=== PATIENT | male | born 1990 | race Caucasian/White ===

== ENCOUNTER 2018-01-05 14:30 | Emergency (ER) | payer OTHER ==
[2018-01-05 16:14] VITALS: BP 97/60
[2018-01-05] MEDS ORDERED: Sulfamethox/Trimethoprim DS 800/160* TAB PO ONE (17:53)
--- NOTE | 2018-01-05 17:56 | ED ---
Lower Extremity - HPI Summary HPI Summary: Patient here for chronic wound on the lateral left heel x weeks. Seen here before for same, given Rx for Bactrim and told to follow up with wound care. Patient states he has been compliant with antibiotics, and has an appointment with wound care and 01/07/18. Patient states he has not been dressing wound. Denies purulent discharge. Also states wound appears to be slowly improving. Medical history is none. Denies fever, cough, sore throat, CP, SOB, N/V/D, abdominal pain, change in urine, change in BM. - History of Current Complaint Chief Complaint: EDExtremityLower Stated Complaint: LEFT FOOT PAIN Time Seen by Provider: 01/05/18 17:12 Hx Obtained From: Patient Mechanism Of Injury: Other Onset/Duration: Weeks Severity Currently: None Pain Intensity: 0 Pain Scale Used: 0-10 Numeric Associated Signs And Symptoms: Positive: Negative Aggravating Factor(s): Weight Bearing Alleviating Factor(s): Rest Able to Bear Weight: Yes - Allergies/Home Medications Allergies/Adverse Reactions: Allergies Allergy/AdvReac Type Severity Reaction Status Date / Time No Known Allergies Allergy Verified 12/23/17 15:39 PMH/Surg Hx/FS Hx/Imm Hx Endocrine/Hematology History: Reports: Hx Thyroid Disease - thyroidectomy 2013 - takes levothyroxine - no chemo Denies: Hx Diabetes, Hx Systemic Lupus Erythematosus Cardiovascular History: Denies: Hx Congestive Heart Failure, Hx Hypertension Respiratory History: Reports: Hx Asthma GI History: Reports: Other GI Disorders - luq pain 1 week History: Denies: Hx Dialysis, Hx Renal Disease Musculoskeletal History: Denies: Hx Rheumatoid Arthritis Sensory History: Reports: Hx Contacts or Glasses Opthamlomology History: Reports: Hx Contacts or Glasses Psychiatric History: Reports: Hx Schizophrenia - best med for him he reports is resperidal, Hx of Violent Episodes Against Others Denies: Hx Eating Disorder - Cancer History Cancer Type, Location and Year: Thyroid CA Hx Chemotherapy: No - Surgical History Surgery Procedure, Year, and Place: TONSILECTOMY., tubes ears as a child Infectious Disease History: No Infectious Disease History: Denies: Traveled Outside the [place] in Last 30 Days - Family History Known Family History: Positive: Unknown, Other - Depression: Mother - Social History Alcohol Use: None Alcohol Amount: Pt is not known to be a drinker Substance Use Type: Reports: Cocaine, Heroin, Other Substance Use Comment - Amount & Last Used: Pt again stated "all the time...forever" Hx Tobacco Use: Yes Smoking Status (MU): Current Some Day Smoker Have You Smoked in the Last Year: No Review of Systems Constitutional: Negative Eyes: Negative ENT: Negative Cardiovascular: Negative Respiratory: Negative Gastrointestinal: Negative Genitourinary: Negative Musculoskeletal: Negative Skin: Other Neurological: Negative Psychological: Normal All Other Systems Reviewed And Are Negative: Yes Physical Exam - Summary Physical Exam Summary: ulceration wound of left lateral heel. No purulent discharge, no erythema, ecchymosis, swelling, extra warmth. Mildly tender to palpation. Skin around areas heavily calloused. PMS intact on left foot. Triage Information Reviewed: Yes Vital Signs On Initial Exam: Initial Vitals Temp Pulse Resp BP Pulse Ox 97.6 F 85 16 115/69 98 01/05/18 14:32 01/05/18 14:32 01/05/18 14:32 01/05/18 14:32 01/05/18 14:32 Vital Signs Reviewed: Yes Appearance: Positive: Well-Appearing Skin: Positive: Warm Head/Face: Positive: Normal Head/Face Inspection Eyes: Positive: Normal Neck: Positive: Supple Respiratory/Lung Sounds: Positive: Clear to Auscultation Cardiovascular: Positive: Normal Abdomen Description: Positive: Nontender Musculoskeletal: Positive: Normal Neurological: Positive: Normal Psychiatric: Positive: Normal AVPU Assessment: Alert - [place] Coma Scale Best Eye Response: 4 - Spontaneous Best Motor Response: 6 - Obeys Commands Best Verbal Response: 5 - Oriented Coma Scale Total: 15 Diagnostics - Vital Signs Vital Signs Temp Pulse Resp BP Pulse Ox 01/05/18 16:12 98.7 F 93 18 97/60 98 01/05/18 14:32 97.6 F 85 16 115/69 98 - Laboratory Lab Statement: Any lab studies that have been ordered have been reviewed, and results considered in the medical decision making process. Lower Extremity Course/Dx - Course Course Of Treatment: Patient here for chronic wound on the lateral left heel x weeks. Seen here before for same, given Rx for Bactrim and told to follow up with wound care. Patient states he has been compliant with antibiotics, and has an appointment with wound care and 01/07/18. Patient states he has not been dressing wound. Denies purulent discharge. Also states wound appears to be slowly improving. Medical history is none. Denies fever, cough, sore throat , CP, SOB, N/V/D, abdominal pain, change in urine, change in BM. Physical exam :ulceration wound of left lateral heel. No purulent discharge, no erythema, ecchymosis, swelling, extra warmth. Mildly tender to palpation. Skin around areas heavily calloused. PMS intact on left foot. Vital signs within normal limits. Wound clean and dry. Patient has appointment on the for with wound care. Patient states he has completed prior Rx for Bactrim. States wound is improving slowly. We'll provide Rx for second round of Bactrim and have patient follow up with wound care at already scheduled appointment on . - Diagnoses Provider Diagnoses: Encounter for wound re-check Discharge - Sign-Out/Discharge Documenting (check all that apply): Patient Departure - Discharge Plan Condition: Stable Disposition: ELOPEMENT Prescriptions: Sulfamethox/Trimethoprim DS* [Bactrim DS 800/160 TAB*] 1 tab PO BID 10 Days #20 tab Patient Education Materials: Wound Infection (ED), Acute Wound Care (ED), Chronic Wound Care (ED) Referrals: Zofia Juan MD [Primary Care Provider] - Additional Instructions: Take antibiotics as directed. Follow-up with already scheduled appointment with wound care on January 07. Return to the ED for any new or worsening symptoms - Billing Disposition and Condition Condition: STABLE Disposition: Elopement
== END 2018-01-05 18:03 | disposition left against medical advice (07) ==
LOC: ED 14:30
DX: S90.922A Unspecified superficial injury of left foot, initial encounter (principal); X58.XXXA Exposure to other specified factors, initial encounter; Y92.9 Unspecified place or not applicable; E07.9 Disorder of thyroid, unspecified; Z72.0 Tobacco use
CPT/HCPCS: 99281

== ENCOUNTER 2018-02-25 00:58 | Inpatient (IN) | payer OTHER ==
--- NOTE | 2018-02-25 01:25 | ED ---
Psychiatric Complaint - HPI Summary HPI Summary: A 27 y/o male brought in by [email or web address] ambulance presents to [facility] with a chief complaint of hearing voices for the last couple weeks REMITTANCE CLERK on the morning of . He called the ambulance himself. He reports being homeless and not living in a [facility]. He c/o schizophrenic attacks. He used to be medicated, but lost his medication and so he came to the ED to seek medical treatment. He claims that the voices do not tell him to hurt anyone but that his voices are sometimes mean. He denies any SI/HI. - History Of Current Complaint Chief Complaint: EDMentalHealth Time Seen by Provider: 02/25/18 01:01 Hx Obtained From: Patient, EMS Onset/Duration: Sudden Onset, Lasting Weeks, Still Present Timing: Constant Severity Initially: Mild Severity Currently: Mild Aggravating Factor(s): Nothing Alleviating Factor(s): Nothing Associated Signs And Symptoms: Positive: Hallucinating Related History: Positive For: Prior Psychiatric Issues Has Suicidal: Denies: Thoughts Has Homicidal: Denies: Thoughts - Allergies/Home Medications Allergies/Adverse Reactions: Allergies Allergy/AdvReac Type Severity Reaction Status Date / Time No Known Allergies Allergy Verified 12/23/17 15:39 Home Medications: Home Medications NK [No Home Medications Reported] 02/25/18 [History Confirmed 02/25/18] PMH/Surg Hx/FS Hx/Imm Hx Endocrine/Hematology History: Reports: Hx Thyroid Disease - thyroidectomy 2013 - takes levothyroxine - no chemo Denies: Hx Diabetes, Hx Systemic Lupus Erythematosus Cardiovascular History: Denies: Hx Congestive Heart Failure, Hx Hypertension Respiratory History: Reports: Hx Asthma GI History: Reports: Other GI Disorders - luq pain 1 week History: Denies: Hx Dialysis, Hx Renal Disease Musculoskeletal History: Denies: Hx Rheumatoid Arthritis Sensory History: Reports: Hx Contacts or Glasses Opthamlomology History: Reports: Hx Contacts or Glasses Psychiatric History: Reports: Hx Schizophrenia - best med for him he reports is resperidal, Hx of Violent Episodes Against Others Denies: Hx Eating Disorder - Cancer History Cancer Type, Location and Year: Thyroid CA Hx Chemotherapy: No - Surgical History Surgery Procedure, Year, and Place: TONSILECTOMY., tubes ears as a child Infectious Disease History: No Infectious Disease History: Denies: Traveled Outside the [place] in Last 30 Days - Family History Known Family History: Positive: Other - Depression: Mother - Social History Alcohol Use: None Alcohol Amount: Pt is not known to be a drinker Substance Use Type: Reports: Cocaine, Heroin, Other Substance Use Comment - Amount & Last Used: Pt again stated "all the time...forever" Hx Tobacco Use: Yes Smoking Status (MU): Current Some Day Smoker Have You Smoked in the Last Year: No Review of Systems Negative: Fever Psychological: Other - Negative: HI/SI Positive: Other - Positive: hearing voices All Other Systems Reviewed And Are Negative: Yes Physical Exam - Summary Physical Exam Summary: VITAL SIGNS: Reviewed. GENERAL: Patient is a well-developed and nourished MALE who is lying comfortable in the stretcher. Patient is not in any acute respiratory distress. HEAD AND FACE: No signs of trauma. No ecchymosis, hematomas or skull depressions. No sinus tenderness. EYES: PERRLA, EOMI x 2, No injected conjunctiva, no nystagmus. EARS: Hearing grossly intact. Ear canals and tympanic membranes are within normal limits. MOUTH: Oropharynx within normal limits. NECK: Supple, trachea is midline, no adenopathy, no JVD, no carotid bruit, no c- spine tenderness, neck with full ROM. CHEST: Symmetric, no tenderness at palpation LUNGS: Clear to auscultation bilaterally. No wheezing or crackles. CVS: Regular rate and rhythm, S1 and S2 present, no murmurs or gallops appreciated. ABDOMEN: Soft, non-tender. No signs of distention. No rebound no guarding, and no masses palpated. Bowel sounds are normal. EXTREMITIES: FROM in all major joints, no edema, no cyanosis or clubbing. NEURO: Alert and oriented x 3. No acute neurological deficits. Speech is normal and follows commands. SKIN: Dry and warm Psych: Hearing voices, homeless, denies suicidal/homicidal thoughts Triage Information Reviewed: Yes Vital Signs On Initial Exam: Initial Vitals Temp Pulse Resp BP Pulse Ox 98.1 F 74 16 118/75 98 02/25/18 00:59 02/25/18 00:59 02/25/18 00:59 02/25/18 00:59 02/25/18 00:59 Vital Signs Reviewed: Yes Diagnostics - Vital Signs Vital Signs Temp Pulse Resp BP Pulse Ox 02/25/18 00:59 98.1 F 74 16 118/75 98 - Laboratory Result Diagrams: 02/25/18 01:28 02/25/18 01:28 Lab Statement: Any lab studies that have been ordered have been reviewed, and results considered in the medical decision making process. Re-Evaluation - Re-Evaluation First Eval Re-Evaluation Time: 03:18 Change: Unchanged Comment: Cleared for MHE. Course/Dx - Course Course Of Treatment: A 27 y/o male brought in by [facility] ambulance presents to [facility] with a chief complaint of hearing voices for the last couple weeks REMITTANCE CLERK on the morning of 02/25/18. Lab results obtained. TSH high at 252.64. The patient has been cleared for MHE. Per clip riveter, Dr. Zhang has decided that the patient will be admitted. The patient is agreeable with this plan. - Differential Dx/Clinical Impression Provider Diagnosis: Schizophrenia, Psychosis, Hypothyroidism - Physician Notifications Discussed Care Of Patient With: Bethel Zhang Time Discussed With Above Provider: 05:20 Instructed by Provider To: Other - Per clip riveter, Dr. Zhang has decided that the patient will be admitted. Discharge - Sign-Out/Discharge Documenting (check all that apply): Patient Departure - Admit - Discharge Plan Condition: Fair Disposition: [facility]YCHIATRIC FACILITY-[facility] [place] - Billing Disposition and Condition Condition: FAIR Disposition: Psychiatric Facility [facility] [place] - Attestation Statements Document Initiated by Fifi: Yes Documenting Scribe: Iban Petersen Provider For Whom Fifi is Documenting (Include Credential): Francheska Benoit MD Scribe Attestation: IIban, scribed for Francheska Benoit MD on 02/25/18 at 0633. Scribe Documentation Reviewed: Yes Provider Attestation: The documentation as recorded by the Iban taylor accurately reflects the service I personally performed and the decisions made by me, Francheska Benoit MD Status of Scribe Document: Viewed
[2018-02-25 01:33] LABS: ABS Basophils 0.1 10^3/ul (0-0.2); ABS Eosinophils 0.2 10^3/ul (0-0.6); ABS Lymphocytes 2.1 10^3/ul (1.0-4.8); ABS Monocytes 0.4 10^3/ul (0-0.8); ABS Nucleated RBC 0 10^3/ul; Eosinophil % 3.1 %; Hematocrit 44 % (42-52); Hemoglobin 15.1 g/dl (14.0-18.0); Lymphocyte % 31.1 %; Mean Corpuscular HGB Conc 34 g/dl (31-36); Mean Corpuscular Hemoglobin 31 pg (27-31); Mean Corpuscular Volume 90 fL (80-94); Mean Platelet Volume 8.4 fL (7.4-10.4); Nucleated Red Blood Cells % 0; Platelet Count 205 10^3/ul (150-450); Red Blood Count 4.92 10^6/ul (4.00-5.40); Red Cell Distribution Width 15 % (10.5-15); White Blood Count 6.7 10^3/ul (3.5-10.8)
[2018-02-25 01:50] LABS: ALT 15 U/L (7-52); AST 37 U/L (13-39); Albumin 4.2 g/dL (3.2-5.2); Albumin/Globulin Ratio 1.3 (1-3); Alkaline Phosphatase 62 U/L (34-104); Anion Gap 6 mmol/L (2-11); BUN/Creatinine Ratio 11.1 (8-20); Blood Urea Nitrogen 15 mg/dL (6-24); CO2 Carbon Dioxide 31 mmol/L (22-32); Calcium 9.3 mg/dL (8.6-10.3); Chloride 100 mmol/L (101-111); EGFR African American 76.7 (>60); EGFR Non-African American 63.4 (>60); Globulin 3.3 g/dL (2-4); Glucose 97 mg/dL (70-100); Potassium 4.2 mmol/L (3.5-5.0); Sodium 137 mmol/L (135-145); Total Protein 7.5 g/dL (6.4-8.9)
[2018-02-25 04:02] LABS: Acetaminophen < 15 mcg/mL; Alcohol < 10 mg/dL (<10); Salicylate < 2.50 mg/dL (<30)
[2018-02-25 04:07] LABS: T4, Total 0.78 g/dL (6.09-12.23); TSH (Thyroid Stimulating Horm) 252.64 mcIU/mL (0.34-5.60)
[2018-02-25] MEDS ORDERED: Levothyroxine TAB* 100 MCG TAB PO ONE ×2 (04:50→06:00)
[2018-02-25] MEDS ORDERED: Acetaminophen TAB* 325 MG PO PRN (09:58)
[2018-02-25] MEDS ORDERED: Al Hydrox/Mg Hydrox/Simet LIQ* 30 ML UDC PO PRN (09:58)
[2018-02-25] MEDS: Vitamin THERAPEUTIC TAB PO SCH (11:39)
--- NOTE | 2018-02-25 11:46 | HP ---
H&P (Free Text) History and Physical: CC "I heard voices HPI 27 year old white single male with past history of schizophrenia presented to the Emergency room brought by EMS. He reported that he called them after he was hearing voices telling him that he was not a good person. He reported not taking his medications (risperdal) for the last 2 months. He denied that the voices told him to hurt himself or others. He stated that he was living at [facility] but is now homeless. He denied suicidal and/or homicidal ideation intent or plan. Patient stated "let me sleep please get out " and refused to provide further history. Psychosis He reported hearing things that other people do not hear. He denied seeing things other people do not see. He denied feeling that the TV is making references. He reported that he doesnt like to be around others. Bipolar He denied being irritable most of the time while having an persistent abundance of energy most of the day without the use of substances other than cannabis and what he is prescribed . He denied the decreased need to sleep. Depression He denied feelings of low self worth , feeling empty inside, with feelings of hopelessness .He denied unintentional weight loss and lack of appetite .He denied periods of low levels of energy or difficulty initiating and completing tasks. Anxiety He denied fear of crowds, or phobias. He denied having symptoms of anxiety. He denied worrying most of the day and denied panic attacks. PTSD He denied flashbacks or recurrent nightmares or avoidance. PAST PSYCHIATRIC HISTORY: History of Schizophrenia 1st admission: 1 [place] [facility] [place] History of past suicide/homicide attempts : He denied past suicide attempts He denied past homicidal incidents. Outpatient follow-up: He denied receiving mental health treatment follow up care. Medications: Past trials of medications included Risperdal. He denied past trails of other medications. FAMILY HISTORY: - Suicide: Denied - Mental illness: Denied - Substance abuse: Denied SUBSTANCE ABUSE HISTORY: He denied heroin and cocaine or using other illicit substances. He denied abusing pills not prescribed to him. He denied past substance abuse treatment. He denied using cannabis. He denied alcohol use. He denied nicotine use. SOCIAL HISTORY: He is a single white male who has no children. Denied past work history Currently homeless was previously living at [facility] in [facility]. Denied having any one in his life for support. He has GED and reported being in special education that he refused to talk about. He was raised in [facility]. PAST MEDICAL HISTORY: Denied Allergies: He denied known drug or food allergies Physical Exam: Please see ED note Mental Status Exam Appearance: 27 year old male appears stated age. In bed wearing hospital gown. Malodors and unkept. Psychomotor activity: no psychomotor agitation Eye contact: Fair Posture: Upright Attitude/behavior: uncooperative Speech: normal rate. Mood: "fine " Affect: constricted Thought process: linear and goal directed Thought content: poverty of content Perceptions: He did not appear to be responding to internal stimuli. Reported auditory hallucinations. Suicidal/homicidal targets: Denied suicidal ideation intent or plan. Denied homicidal ideation, intent or plan. Sensorium/orientation: Awake and alert. Oriented to self, location, and time Insight/judgment: Poor insight and judgment. AXIS I: Schizophrenia Plan Justification for Admission: Patient is unable to take care of himself and is unable to appreciate his treatment needs. Involuntary admission. 9.39. The patient requires inpatient admission at this time to assure safety, receive treatment and work toward stabilization. Admit to BSU. Q15 minute observation. Start regular diet. Encourage participation in activities on the milieu. Patient evaluated in ED and is medically stable for admission. VS and Lab results reviewed which showed elevated TSH and decreased T4 and elevated Cr. Medicine consult placed and will follow up on recommendations. Denied access to Firearms Start Risperdal 0.5mg BID . AIMS 0 The risks, benefits, and alternative treatment options were discussed as well as of the risks of refusing treatment. Treatment associated risks discussed . After this discussion and an acknowledgement of his understanding he made the decision for the current type of treatment. Despite treatment associated with enlarged breasts patient choose to proceed with treatment Encouraged shower and hygiene maintenance. Disposition Patient currently homeless.
[2018-02-26] MEDS: Levothyroxine TAB* 100 MCG TAB PO SCH (06:51)
[2018-02-26] MEDS: Vitamin THERAPEUTIC TAB PO SCH (09:46)
[2018-02-26] MEDS ORDERED: Levothyroxine TAB* 100 MCG TAB PO ONE (12:45)
--- NOTE | 2018-02-26 17:16 | PN ---
Subjective - Subjective Date of Service: 02/26/18 Service Type: 30063 Hosp care 15 min low complexity Subjective: 27 year old white single male with past history of schizophrenia presented to the Emergency room brought by EMS. He reported that he called them after he was hearing voices telling him that he was not a good person. He has been off his medications for a couple of months. He was seen and evaluated today in his room and stated that he was doing better. He was seen organizing magazines. He outlined goals such as be closer to family and to make sure that he is well. He then asked advertising copy writer to leave him alone because he did not want to talk. Nursing report indicated that he has been isolating him self from peers and staff. He reported adequate appetite and sleep. Objective - Appearance Appearance: Healthy Appearing Dysmorphic Features: No Hygiene: Normal Grooming: Fairly Well Kept - Behavior Psychomotor Activities: Normal Exhibits Abnormal Movement: No - Attitude and Relatedness Attitude and Relatedness: Minimally Cooperative Eye Contact: Poor - Speech Quality: Unpressured Latencies: Long Quantity: Terse - Mood Patient's Decription of Mood: "Fine" - Affect Observed Affect: Constricted Affect Consistent with: Dysphoria - Thought Process Patient's Thought Process: Impoverished Thought Content: No Passive Wish, No Suicidal Planning, No Homicidal Ideation, No Paranoid Ideation - Sensorium Experiencing Hallucinations: No, Sensorium is Clear Type of Hallucinations: Visual: No, Auditory: No, Command: No - Level of Consciousness Level of Consciousness: Alert Orientation: Yes Intact, Yes Orientated to Time, Yes Orientated to Place, Yes Orientated to Person - Impulse Control Impulse Control: Impaired - Insight and Judgement Insight and Judgement: Impaired - Group Participation Particating in Group Activities: No - Medication Management Medication Management Adherence: Yes Assessment - Assessment Clinical Impression: 27 year old white single male with past history of schizophrenia presented to the Emergency room brought by EMS after not being on his medications for a couple of months. Plan - Plan Treatment Plan: Name: PETER BARBER Birthdate: 1990 [id number] AXIS I: Schizophrenia Plan Justification for Admission: Patient is unable to take care of himself and is unable to appreciate his treatment needs. Involuntary admission. 9.39. The patient requires inpatient admission at this time to assure safety, receive treatment and work toward stabilization. AIMS 0 The risks, benefits, and alternative treatment options were discussed as well as of the risks of refusing treatment. Treatment associated risks discussed . After this discussion and an acknowledgement of his understanding he made the decision for the current type of treatment. Despite treatment associated with enlarged breasts patient choose to proceed with treatment Repeat Cr lab for tomorrow. Increase risperdal 1mg BID. Encouraged shower and hygiene maintenance. Disposition Patient currently homeless. Medications: Current Medications Acetaminophen (Tylenol Tab*) 650 mg PO Q4H PRN PRN Reason: PAIN or TEMP > 101 F Al Hydrox/Mg Hydrox/Simethicone (Maalox Plus*) 30 ml PO Q4H PRN PRN Reason: INDIGESTION Levothyroxine Sodium (Synthroid Tab*) 200 mcg PO DAILY@0600 [facility] Last Admin: 02/26/18 06:51 Dose: 200 mcg Multivitamins (Theragran Tab*) 1 tab PO DAILY [facility] Last Admin: 02/26/18 09:46 Dose: 1 tab Risperidone (Risperdal*) 1 mg PO BID [facility]
[2018-02-26] MEDS: risperiDONE TAB* 1 MG PO SCH (21:22)
[2018-02-27] MEDS: Levothyroxine TAB* 100 MCG TAB PO SCH (12:27)
[2018-02-27] MEDS: risperiDONE TAB* 1 MG PO SCH ×2 (12:28→22:01)
[2018-02-27] MEDS: Vitamin THERAPEUTIC TAB PO SCH (12:28)
[2018-02-28] MEDS: Levothyroxine TAB* 100 MCG TAB PO SCH (06:25)
[2018-02-28 07:41] LABS: BUN/Creatinine Ratio 10.9 (8-20); Calcium 9.7 mg/dL (8.6-10.3); EGFR African American 88.7 (>60); EGFR Non-African American 73.3 (>60); HDL Cholesterol 64.1 mg/dL; Potassium 3.9 mmol/L (3.5-5.0)
[2018-02-28] MEDS: risperiDONE TAB* 1 MG PO SCH ×2 (09:30→21:51)
[2018-02-28] MEDS: Vitamin THERAPEUTIC TAB PO SCH (09:30)
--- NOTE | 2018-02-28 16:51 | PN ---
Progress Note - Progress Note Date of Service: 02/28/18 Note: Candido continues to be seclusive on the unit and spends best part of time in his room. Although denies psychosis he was observed to be responding to unseen stimulies. Observed affect appeared dysphoric.Per nursing Candido has been OK and low profile on the unit. Plan is to continue current treatments.
[2018-03-01] MEDS: Levothyroxine TAB* 100 MCG TAB PO SCH (06:20)
[2018-03-01] MEDS: risperiDONE TAB* 1 MG PO SCH ×2 (09:30→22:32)
[2018-03-01] MEDS: Vitamin THERAPEUTIC TAB PO SCH (09:30)
--- NOTE | 2018-03-01 11:01 | PN ---
Subjective - Subjective Date of Service: 03/01/18 Service Type: 59602 Hosp care 25 min moderate complexity Subjective: Nursing report : Remains to self, doesnt attend group. No PRNs or overnight incidents, slept overnight. Candido was seen and evaluated today in the hallway and stated that he was doing better. He has been complainant with medication. He reported eating and sleeping adequately. He reported that he may be able to return to live with his grandmother but did not have her number. He said she lives in [facility]. He reported he would sign a release form to speak to his brother Pola to obtain collateral information. He said he thinks he is ready to go and plans to take his medications daily. He felt safe and denied auditory and or visual hallucinations. He denied suicidal ideation intent or plan. Objective - Appearance Appearance: Healthy Appearing Dysmorphic Features: No Hygiene: Normal Grooming: Fairly Well Kept - Behavior Psychomotor Activities: Normal Exhibits Abnormal Movement: No - Attitude and Relatedness Attitude and Relatedness: Superficially Cooperative Eye Contact: Fair - Speech Latencies: Normal - Mood Patient's Decription of Mood: "Okay" - Affect Observed Affect: Non-labile Affect Consistent with: Euthymia - Thought Process Patient's Thought Process: Coherent Thought Content: No Passive Wish, No Suicidal Planning, No Homicidal Ideation, No Paranoid Ideation - Sensorium Experiencing Hallucinations: No, Sensorium is Clear Type of Hallucinations: Visual: No, Auditory: No, Command: No - Level of Consciousness Level of Consciousness: Alert Orientation: Yes Intact, Yes Orientated to Time, Yes Orientated to Place, Yes Orientated to Person - Impulse Control Impulse Control: Intact - Insight and Judgement Insight and Judgement: Fair - Group Participation Particating in Group Activities: No - Medication Management Medication Management Adherence: Yes Assessment - Assessment Merits Inpatient Hospitalization: For Immediate Safety Clinical Impression: 27 year old white single male with past history of schizophrenia presented to the Emergency room brought by EMS after not being on his medications for a couple of months. He has been compliant with medications and has shown improvement. Plan - Plan Treatment Plan: Name: CANDIDO BARBER Birthdate: 1990 [id number] AXIS I: Schizophrenia Plan Justification for Admission: Patient is unable to take care of himself and is unable to appreciate his treatment needs. Involuntary admission. 9.39. The patient continues to require inpatient admission at this time to assure safety, receive treatment and work toward stabilization. AIMS 0 Continue risperdal 1mg BID. Patient denied diabetes and denied having a family history. Long acting AP injection offered to patient to increase compliance. Collateral information unable as of yet due to patient not having information. Disposition Patient may return to live with Grandmother, still to be confirmed. The risks, benefits, and alternative treatment options were discussed as well as of the risks of refusing treatment. Treatment associated risks discussed . After this discussion and an acknowledgement of his understanding he made the decision for the current type of treatment. Despite treatment associated with enlarged breasts patient choose to proceed with treatment Continued Medication Management: Continue Outpt Medication Medications: Current Medications Acetaminophen (Tylenol Tab*) 650 mg PO Q4H PRN PRN Reason: PAIN or TEMP > 101 F Al Hydrox/Mg Hydrox/Simethicone (Maalox Plus*) 30 ml PO Q4H PRN PRN Reason: INDIGESTION Levothyroxine Sodium (Synthroid Tab*) 200 mcg PO DAILY@0600 [facility] Last Admin: 03/01/18 06:20 Dose: 200 mcg Multivitamins (Theragran Tab*) 1 tab PO DAILY [facility] Last Admin: 03/01/18 09:30 Dose: 1 tab Risperidone (Risperdal*) 1 mg PO BID [facility] Last Admin: 03/01/18 09:30 Dose: 1 mg - Discharge Plan Discharge Plan: Inpatient Hospitalization
[2018-03-02] MEDS: risperiDONE TAB* 1 MG PO SCH ×2 (09:31→21:20)
[2018-03-02] MEDS: Levothyroxine TAB* 100 MCG TAB PO SCH (09:31)
[2018-03-02] MEDS: Vitamin THERAPEUTIC TAB PO SCH (09:31)
--- NOTE | 2018-03-02 15:17 | PN ---
Subjective - Subjective Date of Service: 03/02/18 Service Type: 29847 Hosp care 25 min moderate complexity Subjective: Nursing report : Remains to self, doesnt attend group. No PRNs or overnight incidents, slept overnight. Candido was seen and evaluated today in the hallway and stated that he was doing better. He said that he was unsure that he will be able to return to live with his grandmother. Collateral information from his Grandmother revealed that he once lived with her and turned things upside down and had bizarre behavior. He has been complainant with medication. He reported eating and sleeping adequately. He reported feeling safe on the unit and denied people out to get him or following him. He denied auditory and or visual hallucinations. He denied suicidal ideation intent or plan.He refused the option of using a long acting injection because he said in the past it drowned him out. After offered different types of long acting medications he continued to refuse. He is in agreement with returning care with the ACT team. Objective - Appearance Dysmorphic Features: No Hygiene: Normal Grooming: Disheveled - Behavior Psychomotor Activities: Normal Exhibits Abnormal Movement: No - Attitude and Relatedness Attitude and Relatedness: Superficially Cooperative Eye Contact: Fair - Speech Quantity: Appropriate - Mood Patient's Decription of Mood: "Okay" - Affect Observed Affect: Constricted Affect Consistent with: Euthymia - Thought Process Patient's Thought Process: Goal Directed Thought Content: No Passive Wish, No Suicidal Planning, No Homicidal Ideation, No Paranoid Ideation - Sensorium Experiencing Hallucinations: No, Sensorium is Clear Type of Hallucinations: Visual: No, Auditory: No, Command: No - Level of Consciousness Level of Consciousness: Alert Orientation: Yes Intact, Yes Orientated to Time, Yes Orientated to Place, Yes Orientated to Person - Impulse Control Impulse Control: Impaired - Insight and Judgement Insight and Judgement: Poor - Group Participation Particating in Group Activities: No - Medication Management Medication Management Adherence: Yes Assessment - Assessment Merits Inpatient Hospitalization: For Immediate Safety Clinical Impression: 27 year old white single male with past history of schizophrenia presented to the Emergency room brought by EMS after not being on his medications for a couple of months. He has been compliant with medications and has shown improvement. Disposition is pending. Plan - Plan Treatment Plan: Name: CANDIDO BARBER Birthdate: 1990 [id number] AXIS I: Schizophrenia Plan Justification for Admission: Patient is unable to take care of himself and is unable to appreciate his treatment needs. Involuntary admission. 9.39. The patient continues to require inpatient admission at this time to assure safety, receive treatment and work toward stabilization. AIMS 0 Continue risperdal 1mg BID. Patient denied diabetes and denied having a family history. Long acting AP injection offered to patient to increase compliance and he refused. Disposition Patient is unable to return to live with his grandmothers.Waiting to hear back from aunt. Plan to enroll with ACT team. Patient is motivated to return care with the ACT Team. The risks, benefits, and alternative treatment options were discussed as well as of the risks of refusing treatment. Treatment associated risks discussed . After this discussion and an acknowledgement of his understanding he made the decision for the current type of treatment. Despite treatment associated with enlarged breasts patient choose to proceed with treatment Continued Medication Management: Continue Outpt Medication Medications: Current Medications Acetaminophen (Tylenol Tab*) 650 mg PO Q4H PRN PRN Reason: PAIN or TEMP > 101 F Al Hydrox/Mg Hydrox/Simethicone (Maalox Plus*) 30 ml PO Q4H PRN PRN Reason: INDIGESTION Levothyroxine Sodium (Synthroid Tab*) 200 mcg PO DAILY@0600 [facility] Last Admin: 03/02/18 09:31 Dose: 200 mcg Multivitamins (Theragran Tab*) 1 tab PO DAILY [facility] Last Admin: 03/02/18 09:31 Dose: 1 tab Risperidone (Risperdal*) 1 mg PO BID [facility] Last Admin: 03/02/18 09:31 Dose: 1 mg - Discharge Plan Discharge Plan: Inpatient Hospitalization
[2018-03-03] MEDS: Levothyroxine TAB* 100 MCG TAB PO SCH (07:52)
[2018-03-03] MEDS: risperiDONE TAB* 1 MG PO SCH ×2 (09:09→21:17)
[2018-03-03] MEDS: Vitamin THERAPEUTIC TAB PO SCH (09:09)
--- NOTE | 2018-03-03 10:39 | PN ---
Subjective - Subjective Date of Service: 03/03/18 Service Type: 46008 Hosp care 15 min low complexity Subjective: Nursing report : Remains in bed during the day, doesnt attend group. No PRNs or overnight incidents. Candido was seen and evaluated today in his bedroom and stated that he was doing better. He said that he is okay if he has to return to living at the homeless residential. He has been complainant with medication. He reported eating and sleeping adequately. He reported that he sleeps during the day. He reported feeling safe on the unit and denied people out to get him or following him. He denied auditory and or visual hallucinations. He denied suicidal ideation intent or plan. He was offered a long acting injection and refused. He likes the idea of having following up with the ACT team. Objective - Appearance Appearance: Healthy Appearing Dysmorphic Features: No Hygiene: Normal Grooming: Disheveled - Behavior Psychomotor Activities: Normal Exhibits Abnormal Movement: No - Attitude and Relatedness Attitude and Relatedness: Superficially Cooperative Eye Contact: Fair - Speech Quality: Unpressured Latencies: Short Quantity: Terse - Mood Patient's Decription of Mood: "Fine" - Affect Observed Affect: Constricted Affect Consistent with: Euthymia - Thought Process Patient's Thought Process: Impoverished Thought Content: No Passive Wish, No Suicidal Planning, No Homicidal Ideation, No Paranoid Ideation - Sensorium Experiencing Hallucinations: No, Sensorium is Clear Type of Hallucinations: Visual: No, Auditory: No, Command: No - Level of Consciousness Level of Consciousness: Alert Orientation: Yes Intact, Yes Orientated to Time, Yes Orientated to Place, Yes Orientated to Person - Impulse Control Impulse Control: Tenuous - Insight and Judgement Insight and Judgement: Fair - Group Participation Particating in Group Activities: No - Medication Management Medication Management Adherence: Yes Assessment - Assessment Merits Inpatient Hospitalization: For Immediate Safety Clinical Impression: 27 year old white single male with past history of schizophrenia presented to the Emergency room brought by EMS after not being on his medications for a couple of months. In bed during the day. He has been compliant with medications and has shown improvement. Plan - Plan Treatment Plan: Name: CANDIDO BARBER Birthdate: 1990 [id number] AXIS I: Schizophrenia Plan Justification for Admission: Patient is unable to take care of himself and is unable to appreciate his treatment needs. Involuntary admission. 9.39. The patient continues to require inpatient admission at this time to assure safety, receive treatment and work toward stabilization. AIMS 0 Continue risperdal 1mg BID. Patient denied diabetes and denied having a family history. Long acting AP injection offered to patient to increase compliance and he refused. ACT team to evaluate patient today. Disposition Discharge once ACT team evaluates the patient and housing is secure. Possible discharge tomorrow. The risks, benefits, and alternative treatment options were discussed as well as of the risks of refusing treatment. Treatment associated risks discussed . After this discussion and an acknowledgement of his understanding he made the decision for the current type of treatment. Despite treatment associated with enlarged breasts patient choose to proceed with treatment Continued Medication Management: Continue Outpt Medication Medications: Current Medications Acetaminophen (Tylenol Tab*) 650 mg PO Q4H PRN PRN Reason: PAIN or TEMP > 101 F Al Hydrox/Mg Hydrox/Simethicone (Maalox Plus*) 30 ml PO Q4H PRN PRN Reason: INDIGESTION Levothyroxine Sodium (Synthroid Tab*) 200 mcg PO DAILY@0600 [facility] Last Admin: 03/03/18 07:52 Dose: 200 mcg Multivitamins (Theragran Tab*) 1 tab PO DAILY [facility] Last Admin: 03/03/18 09:09 Dose: 1 tab Risperidone (Risperdal*) 1 mg PO BID [facility] Last Admin: 03/03/18 09:09 Dose: 1 mg - Discharge Plan Discharge Plan: Inpatient Hospitalization Outpatient Program: ACT
--- NOTE | 2018-03-04 08:01 | PN ---
Subjective - Subjective Date of Service: 03/04/18 Service Type: 39243 Hosp care 25 min moderate complexity Subjective: Nursing report : Remains in bed during the day, doesnt attend group. No PRNs or overnight incidents. Candido was seen and evaluated today in the hallway and stated that he was doing better. He said that he is okay if he has to return to living at the homeless retirement and is excited to get back to being engaged in the ACT team. The importance of medication compliance was discussed and he reitterated that he doesnt want to be on a injection. He reported that he does well when he has social structure.And attributes his hospitalizations in [place] and [place] to becoming isolated from society. He explained that if he takes his medications, engages in the ACT team, and becomes closer to his family that he will not have to ever be in the hospital. He has been complainant with medication. He reported eating and sleeping adequately. He reported feeling safe on the unit and denied people out to get him or following him. He denied auditory and or visual hallucinations. He denied suicidal ideation intent or plan. He was offered a long acting injection and refused. He likes the idea of having following up with the ACT team. Collateral information reveals that he has a history of being hospitalized in [place] and [place]. His Aunt is expected to visit today. Objective - Appearance Dysmorphic Features: No Hygiene: Normal Grooming: Fairly Well Kept - Behavior Psychomotor Activities: Abnormal-Decreased Exhibits Abnormal Movement: No - Attitude and Relatedness Attitude and Relatedness: Superficially Cooperative Eye Contact: Fair - Speech Quality: Unpressured Latencies: Short Quantity: Terse - Mood Patient's Decription of Mood: "Fine" - Affect Observed Affect: Constricted Affect Consistent with: Dysphoria - Thought Process Patient's Thought Process: Disorganized Thought Content: No Passive Wish, No Suicidal Planning, No Homicidal Ideation, No Paranoid Ideation - Sensorium Type of Hallucinations: Visual: No, Auditory: No, Command: No - Level of Consciousness Level of Consciousness: Alert Orientation: No Intact, No Orientated to Time, No Orientated to Place, No Orientated to Person - Impulse Control Impulse Control: Impaired - Insight and Judgement Insight and Judgement: Impaired - Group Participation Particating in Group Activities: No - Medication Management Medication Management Adherence: Yes Assessment - Assessment Merits Inpatient Hospitalization: For Immediate Safety Clinical Impression: 27 year old white single male with past history of schizophrenia presented to the Emergency room brought by EMS after not being on his medications for a couple of months. In bed during the day. He has been compliant with medications and has shown improvement.Collateral history reveals chronic hospitalizations Plan - Plan Treatment Plan: Name: CANDIDO BARBER Birthdate: 1990 [id number] AXIS I: Schizophrenia Plan Justification for Admission: Patient is unable to take care of himself and is unable to appreciate his treatment needs. Involuntary admission. 9.39. The patient continues to require inpatient admission at this time to assure safety, receive treatment and work toward stabilization. AIMS 0 Continue risperdal 1mg BID. Patient denied diabetes and denied having a family history. Long acting AP injection offered to patient to increase compliance and he refused. ACT team to be set up for Thursday Disposition Discharge once ACT team evaluates the patient and housing is secure. Possible discharge Thursday. Collateral information reveals that he has a history of being hospitalized in [place] and [place] and has long history of persistent mental illness. Visit with his Aunt is expected today. The risks, benefits, and alternative treatment options were discussed as well as of the risks of refusing treatment. Treatment associated risks discussed . After this discussion and an acknowledgement of his understanding he made the decision for the current type of treatment. Despite treatment associated with enlarged breasts patient choose to proceed with treatment Continued Medication Management: Continue Outpt Medication Medications: Current Medications Acetaminophen (Tylenol Tab*) 650 mg PO Q4H PRN PRN Reason: PAIN or TEMP > 101 F Al Hydrox/Mg Hydrox/Simethicone (Maalox Plus*) 30 ml PO Q4H PRN PRN Reason: INDIGESTION Levothyroxine Sodium (Synthroid Tab*) 200 mcg PO DAILY@0600 [facility] Last Admin: 03/03/18 07:52 Dose: 200 mcg Multivitamins (Theragran Tab*) 1 tab PO DAILY [facility] Last Admin: 03/03/18 09:09 Dose: 1 tab Risperidone (Risperdal*) 1 mg PO BID [facility] Last Admin: 03/03/18 21:17 Dose: 1 mg - Discharge Plan Discharge Plan: Inpatient Hospitalization Outpatient Program: ACT
[2018-03-04] MEDS: risperiDONE TAB* 1 MG PO SCH (08:33)
[2018-03-04] MEDS: Vitamin THERAPEUTIC TAB PO SCH (08:33)
[2018-03-04] MEDS: Levothyroxine TAB* 100 MCG TAB PO SCH (08:33)
--- NOTE | 2018-03-04 19:27 | CONS ---
CC: Dr. Bobo SHORT CONSULTATION REPORT: DATE OF CONSULTATION: REASON FOR CONSULTATION: The consultation is from Dr. Bobo in regards of left heel problems in the patient with history of MRSA infection. CHIEF COMPLAINT: Left heel crack. HISTORY OF PRESENT ILLNESS: Candido Sales is a 27-year-old male with history of schizophrenia and papillary thyroid cancer and later on total thyroidectomy who is now hypothyroid. He is currently hospitalized for stabilization of his schizophrenia. He was noted to stop his medications a while ago and his TSH was noted to be above 200. He was placed back on his Synthroid at admission. Today, Dr. Bobo noted the patient having cracked heel and the patient apparently reported history of MRSA. A consult in regards to the problem with the left heel was requested to rule out infection. PAST MEDICAL HISTORY: 1. Positive for schizophrenia. 2. 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 3. History of asthma. 4. Anxiety. 5. Tonsillectomy. 6. Tympanostomy. CURRENT MEDICATIONS: Include: 1. Risperdal 3 mg at bedtime. 2. Levothyroxine 200 mcg daily. 3. Maalox on a p.r.n. basis. 4. Multivitamin 1 tablet daily. 5. Acetaminophen on a p.r.n. basis. FAMILY HISTORY: Positive for mother with hypothyroidism. Father with history of heart disease. SOCIAL HISTORY: The patient denies any tobacco or drug use. He is currently being hospitalized at mental health unit. His surrogate is his mother, Josette who lives in [place]. REVIEW OF SYSTEMS: Please see history of present illness. Shortly, the patient complains of dry skin and hypertrophied skin on bilateral heels and a crack that developed recently. He has pain with ambulation. PHYSICAL EXAMINATION: Limited to the feet, noted hypertrophied and callused bilateral heels with a crack on the lateral aspect of the left heel of approximately 2 cm in length, approximately 3 mm in depth. There is no infection noted. No drainage noted. The area of the crack is dry. There is no cellulitis. There is no fluctuation on palpation. ASSESSMENT AND PLAN: The patient has callus on his feet with a cracked heel. At this point, recommendation is to use lotion, protect his feet with socks and try to change his shoes to something softer but with more support. Currently, the patient is wearing rubber flip flops. At this point, there is no evidence of infection. Thank you very much for allowing our service to see the patient in this consultation. We will see the patient on a p.r.n. basis. [id number]/[facility] #: [id number] [facility]
[2018-03-04] MEDS: risperiDONE TAB* 3 MG PO SCH (21:57)
[2018-03-05] MEDS: Levothyroxine TAB* 100 MCG TAB PO SCH (05:45)
[2018-03-05] MEDS: Vitamin THERAPEUTIC TAB PO SCH (08:36)
--- NOTE | 2018-03-05 12:05 | PN ---
Subjective - Subjective Date of Service: 03/05/18 Service Type: [id number] Hosp care 15 min low complexity Subjective: Candido is seen in coverage for Dr. Bobo. The patient is isolative to his room but is polite and cooperative on exam. He reports that the ACT team will pick him up from the hospital on Thursday and take his temporarily to the local skilled nursing , where he will await more sustainable housing. He is tolerating risperidone well and denies thoughts of harm to self or others. Objective - Appearance Appearance: Well Developed/Nourished Dysmorphic Features: No Hygiene: Normal Grooming: Well Kept - Behavior Psychomotor Activities: Normal Exhibits Abnormal Movement: No - Attitude and Relatedness Attitude and Relatedness: Cooperative Eye Contact: Fair - Speech Quality: Unpressured Latencies: Normal Quantity: Terse - Mood Patient's Decription of Mood: "Okay" - Affect Observed Affect: Fair Affect Consistent with: Euthymia - Thought Process Patient's Thought Process: Coherent Thought Content: No Passive Wish, No Suicidal Planning, No Homicidal Ideation, No Paranoid Ideation - Sensorium Experiencing Hallucinations: Yes Type of Hallucinations: Visual: No, Auditory: No, Command: No - Level of Consciousness Level of Consciousness: Alert Orientation: Yes Intact, Yes Orientated to Time, Yes Orientated to Place, Yes Orientated to Person - Impulse Control Impulse Control: Tenuous - Insight and Judgement Insight and Judgement: Fair - Group Participation Particating in Group Activities: No - Medication Management Medication Management Adherence: Yes Assessment - Assessment Merits Inpatient Hospitalization: Consolidate Improvements, Pending Safe DC Plan Inpatient DSM-V Dx: F20.9 Clinical Impression: 27 year old white single male with past history of schizophrenia presented to the Emergency room brought by EMS after not being on his medications for a couple of months. In bed during the day. He has been compliant with medications and has shown improvement.Collateral history reveals chronic hospitalizations BSU: Problem List - Patient Problems (1) Schizophrenia Current Visit: No Status: Chronic Code(s): F20.9 - SCHIZOPHRENIA, UNSPECIFIED SNOMED Code(s): 74664682 Plan - Plan Treatment Plan: Name: CANDIDO BARBER Birthdate: 1990 [id number] AXIS I: Schizophrenia Plan Justification for Admission: Patient is unable to take care of himself and is unable to appreciate his treatment needs. Involuntary admission. 9.39. The patient continues to require inpatient admission at this time to assure safety, receive treatment and work toward stabilization. AIMS 0 Continue risperdal 1mg BID. Patient denied diabetes and denied having a family history. Long acting AP injection offered to patient to increase compliance and he refused. ACT team to be set up for Thursday Disposition Discharge once ACT team evaluates the patient and housing is secure. Possible discharge Thursday. Collateral information reveals that he has a history of being hospitalized in [place] and [place] and has long history of persistent mental illness. Visit with his Aunt is expected today. The risks, benefits, and alternative treatment options were discussed as well as of the risks of refusing treatment. Treatment associated risks discussed . After this discussion and an acknowledgement of his understanding he made the decision for the current type of treatment. Despite treatment associated with enlarged breasts patient choose to proceed with treatment Continued Medication Management: Start Medication Medications: Current Medications Acetaminophen (Tylenol Tab*) 650 mg PO Q4H PRN PRN Reason: PAIN or TEMP > 101 F Al Hydrox/Mg Hydrox/Simethicone (Maalox Plus*) 30 ml PO Q4H PRN PRN Reason: INDIGESTION Levothyroxine Sodium (Synthroid Tab*) 200 mcg PO DAILY@0600 [facility] Last Admin: 03/05/18 05:45 Dose: 200 mcg Multivitamins (Theragran Tab*) 1 tab PO DAILY [facility] Last Admin: 03/05/18 08:36 Dose: 1 tab Risperidone (Risperdal*) 3 mg PO BEDTIME [facility] Last Admin: 03/04/18 21:57 Dose: 3 mg - Discharge Plan Discharge Plan: Outpatient Follow Up Outpatient Program: ACT team
[2018-03-05] MEDS: risperiDONE TAB* 3 MG PO SCH (21:06)
[2018-03-06] MEDS: Levothyroxine TAB* 100 MCG TAB PO SCH (06:34)
[2018-03-06] MEDS: Vitamin THERAPEUTIC TAB PO SCH (08:40)
[2018-03-06] MEDS: risperiDONE TAB* 3 MG PO SCH (21:26)
[2018-03-07] MEDS: Levothyroxine TAB* 100 MCG TAB PO SCH (07:41)
[2018-03-07] MEDS: Vitamin THERAPEUTIC TAB PO SCH (07:42)
--- NOTE | 2018-03-07 16:54 | PN ---
Subjective - Subjective Date of Service: 03/07/18 Subjective: Candido remains seclusive to his room, he denies A/VH or paranoid ideation. He denies SI/HI and he contracts for safety. He denies side effects from prescribed meds. He reports looking forward to discharge to the rescue [place] in AM. Objective - Appearance Appearance: Well Developed/Nourished Dysmorphic Features: No Hygiene: Normal Grooming: Well Kept - Behavior Psychomotor Activities: Normal Exhibits Abnormal Movement: No - Attitude and Relatedness Attitude and Relatedness: Guarded Eye Contact: Poor - Speech Quality: Unpressured Latencies: Normal Quantity: Terse - Mood Patient's Decription of Mood: "Okay" - Affect Observed Affect: Unvariable Affect Consistent with: Euthymia - Thought Process Patient's Thought Process: Coherent, Impoverished Thought Content: No Passive Wish, No Suicidal Planning, No Homicidal Ideation, No Paranoid Ideation - Sensorium Experiencing Hallucinations: No, Sensorium is Clear - Level of Consciousness Level of Consciousness: Alert Orientation: Yes Intact - Impulse Control Impulse Control: Intact - Insight and Judgement Insight and Judgement: Impaired - Group Participation Particating in Group Activities: No - Medication Management Medication Management Adherence: Yes Assessment - Assessment Merits Inpatient Hospitalization: Consolidate Improvements, For Discharge Planning Inpatient DSM-V Dx: F20.9 Clinical Impression: 27 year old white single male with past history of schizophrenia presented to the Emergency room brought by EMS after not being on his medications for a couple of months. In bed during the day. He has been compliant with medications and has shown improvement.Collateral history reveals chronic hospitalizations He is stabilizing in this structured setting with reported resolution of presenting symptoms. Tolerating meds with no reported/observed side effects. Plan - Plan Treatment Plan: Name: CANDIDO BARBER Birthdate: 1990 [id number] AXIS I: Schizophrenia Plan Justification for Admission: Patient is unable to take care of himself and is unable to appreciate his treatment needs. Involuntary admission. 9.39. The patient continues to require inpatient admission at this time to assure safety, receive treatment and work toward stabilization. AIMS 0 Continue risperdal 1mg BID. Patient denied diabetes and denied having a family history. Long acting AP injection offered to patient to increase compliance and he refused. ACT team to be set up for Thursday Disposition Discharge once ACT team evaluates the patient and housing is secure. Possible discharge Thursday. Collateral information reveals that he has a history of being hospitalized in [place] and [place] and has long history of persistent mental illness. Visit with his Aunt is expected today. The risks, benefits, and alternative treatment options were discussed as well as of the risks of refusing treatment. Treatment associated risks discussed . After this discussion and an acknowledgement of his understanding he made the decision for the current type of treatment. Despite treatment associated with enlarged breasts patient choose to proceed with treatment Continued Medication Management: Continue Outpt Medication Medications: Current Medications Acetaminophen (Tylenol Tab*) 650 mg PO Q4H PRN PRN Reason: PAIN or TEMP > 101 F Al Hydrox/Mg Hydrox/Simethicone (Maalox Plus*) 30 ml PO Q4H PRN PRN Reason: INDIGESTION Levothyroxine Sodium (Synthroid Tab*) 200 mcg PO DAILY@0600 [facility] Last Admin: 03/07/18 07:41 Dose: 200 mcg Multivitamins (Theragran Tab*) 1 tab PO DAILY [facility] Last Admin: 03/07/18 07:42 Dose: 1 tab Risperidone (Risperdal*) 3 mg PO BEDTIME [facility] Last Admin: 03/06/18 21:26 Dose: 3 mg - Discharge Plan Discharge Plan: Outpatient Follow Up Outpatient Program: ACT
[2018-03-07] MEDS: risperiDONE TAB* 3 MG PO SCH (21:11)
[2018-03-08] MEDS: Levothyroxine TAB* 100 MCG TAB PO SCH (05:28)
--- NOTE | 2018-03-08 08:14 | DS ---
Subjective - Subjective Service Types: 66021 [facility] Day Mgmt complex over 30 min Discharge Date: 03/08/18 Subjective: Nursing report : slept overnight, no behavioral issues Candido was seen and evaluated today he said that he is ready for discharge and is looking forward to having more contact with his family and getting set up with the ACT team. The importance of medication compliance was discussed and he confirmed that he doesnt want to be on a injection. He reported eating and sleeping adequately. He reported feeling safe on the unit and denied people out to get him or following him. He denied auditory and or visual hallucinations. He denied suicidal and or homicidal ideation intent or plan. Justification for admission for immediate safety. CC "I heard voices HPI 27 year old white single male with past history of schizophrenia presented to the Emergency room brought by EMS. He reported that he called them after he was hearing voices telling him that he was not a good person. He reported not taking his medications (risperdal) for the last 2 months. He denied that the voices told him to hurt himself or others. He stated that he was living at [facility] but is now homeless. He denied suicidal and/or homicidal ideation intent or plan. Patient stated "let me sleep please get out " and refused to provide further history. Psychosis He reported hearing things that other people do not hear. He denied seeing things other people do not see. He denied feeling that the TV is making references. He reported that he doesnt like to be around others. Bipolar He denied being irritable most of the time while having an persistent abundance of energy most of the day without the use of substances other than cannabis and what he is prescribed . He denied the decreased need to sleep. Depression He denied feelings of low self worth , feeling empty inside, with feelings of hopelessness .He denied unintentional weight loss and lack of appetite .He denied periods of low levels of energy or difficulty initiating and completing tasks. Anxiety He denied fear of crowds, or phobias. He denied having symptoms of anxiety. He denied worrying most of the day and denied panic attacks. PTSD He denied flashbacks or recurrent nightmares or avoidance. PAST PSYCHIATRIC HISTORY: History of Schizophrenia 1st admission: 1 past psychiatric hospitalization in 2016 at [facility]. History of past suicide/homicide attempts : He denied past suicide attempts He denied past homicidal incidents. Outpatient follow-up: He denied receiving mental health treatment follow up care. Medications: Past trials of medications included Risperdal. He denied past trails of other medications. FAMILY HISTORY: - Suicide: Denied - Mental illness: Denied - Substance abuse: Denied SUBSTANCE ABUSE HISTORY: He denied heroin and cocaine or using other illicit substances. He denied abusing pills not prescribed to him. He denied past substance abuse treatment. He denied using cannabis. He denied alcohol use. He denied nicotine use. SOCIAL HISTORY: He is a single white male who has no children. Denied past work history Currently homeless [facility]. Denied having any one in his life for support. He has GED and reported being in special education that he refused to talk about. He was raised in [facility]. PAST MEDICAL HISTORY: Denied Allergies: He denied known drug or food allergies Physical Exam: Please see ED note Mental Status Exam on Admission Appearance: 27 year old male appears stated age. In bed wearing hospital gown. Malodors and unkept. Psychomotor activity: no psychomotor agitation Eye contact: Fair Posture: Upright Attitude/behavior: uncooperative Speech: normal rate. Mood: "fine " Affect: constricted Thought process: linear and goal directed Thought content: poverty of content Perceptions: He did not appear to be responding to internal stimuli. Reported auditory hallucinations. Suicidal/homicidal targets: Denied suicidal ideation intent or plan. Denied homicidal ideation, intent or plan. Sensorium/orientation: Awake and alert. Oriented to self, location, and time Insight/judgment: Poor insight and judgment. Diagnosis on Admission Schizophrenia Diagnosis on discharge Schizophrenia Objective - Appearance Dysmorphic Features: No Hygiene: Normal Grooming: Fairly Well Kept - Behavior Psychomotor Activities: Normal Exhibits Abnormal Movement: No - Attitude and Relatedness Attitude and Relatedness: Cooperative Eye Contact: Fair - Speech Quality: Unpressured Latencies: Normal Quantity: Appropriate - Mood Patient's Decription of Mood: "Okay" - Affect Observed Affect: Non-labile Affect Consistent with: Euthymia - Thought Process Patient's Thought Process: Goal Directed Thought Content: No Passive Wish, No Suicidal Planning, No Homicidal Ideation, No Paranoid Ideation - Sensorium Experiencing Hallucinations: No, Sensorium is Clear Type of Hallucinations: Visual: No, Auditory: No, Command: No - Level of Consciousness Level of Consciousness: Alert Orientation: Yes Intact, Yes Orientated to Time, Yes Orientated to Place, Yes Orientated to Person - Impulse Control Impulse Control: Intact - Insight and Judgement Insight and Judgement: Fair - Group Participation Particating in Group Activities: No - Medication Management Medication Management Adherence: Yes Treatment Course & Assessment Clinical Course & Impression: Impression 27 year old white single male with past history of schizophrenia presented to the Emergency room brought by EMS after not being on his medications for a couple of months. In bed during the day. He has been compliant with medications and has shown improvement.Collateral history reveals multiple hospitalizations Condition at the time of discharge: At the time of discharge patient was not showing any signs or symptoms of mental illness that brought this patient to the hospital and was not a danger to self or others. Patient was not showing any side effects of medication. Patient had no suicidal or homicidal thoughts ideations or plans. Patient was taking medications as prescribed and was not showing any side effects of medications. This patient participated in some psychosocial rehabilitation and gained some insight into problems. Therapy Resources were offered to the patient. Patient was given a month supply of prescriptions at the time of discharge. This patient will follow up with the follow up arrangements and ACT team that were put in place. Patient was asked to keep appointments as scheduled, take medication as prescribed and refrain from any use of alcohol or drugs. Hospital course part A: 27 year old white single male with past history of schizophrenia presented to the Emergency room brought by EMS. He reported that he called them after he was hearing voices telling him that he was not a good person. He reported not taking his medications (risperdal) for the last 2 months. He denied that the voices told him to hurt himself or others. He stated that he was living at [facility] but is now homeless. He denied suicidal and/or homicidal ideation intent or plan. Hospital course part B: Patient was admitted on a Involuntary admission. 39. He was restarted on risperdal 0.5mg BID and increased to 1mg BID and then 3mg PO QHS. He was advised of the risks of possible breast enlargements and discharge and wanted to continue treatment of risperdal. The patient was placed on Q15 minute observation. He was started on a regular diet. AIMS test was 0. CBC, CMP, Lipid an dHBA1c were performed and no metabolic issues were found. The patients family was contacted and a meeting with his Aunt was held. She confirmed that he was at his baseline before the time of discharge. The ACT team will continue following him once he is discharged. He will return to live at [facility]. A consult for elevated TSH , Cr and cut on his left foot was made and he was evaluated by the medical team . He was resumed on his thyroid medications levothyroxine 200mcg daily. Improvements in patient from the time of admission include: improvement of sleep , appetite and organized thought process. He denied access to firearms. The risks, benefits, and alternative treatment options were discussed as well as of the risks of refusing treatment. Treatment associated risks were discussed . After this discussion and an acknowledgement of his understanding he made the decision for the current type of treatment. He was offered a long acting anti- psychotic injection on multiple occasions and refused. At the time of discharge he reported feeling safe on the unit and denied people out to get him or following him. He denied auditory and or visual hallucinations. He denied suicidal and or homicidal ideation intent or plan. Merits Inpatient Hospitalization: Yes Clear for Discharge: Adequate Clinical Respons Inpatient DSM-V Dx: F20.9 Discharge Planning - Discharge Planning Discharge Plan: Outpatient Follow Up Outpatient Program: ACT team Recommendations for Continuing Care: Medication Management Medications: Current Medications Acetaminophen (Tylenol Tab*) 650 mg PO Q4H PRN PRN Reason: PAIN or TEMP > 101 F Al Hydrox/Mg Hydrox/Simethicone (Maalox Plus*) 30 ml PO Q4H PRN PRN Reason: INDIGESTION Levothyroxine Sodium (Synthroid Tab*) 200 mcg PO DAILY@0600 [facility] Last Admin: 03/08/18 05:28 Dose: 200 mcg Multivitamins (Theragran Tab*) 1 tab PO DAILY [facility] Last Admin: 03/07/18 07:42 Dose: 1 tab Risperidone (Risperdal*) 3 mg PO BEDTIME [facility] Last Admin: 03/07/18 21:11 Dose: 3 mg Discharge Planning: Prescriptions provided for discharge [x] Yes [] No Follow up care details as per social work arrangements. Patient response to discharge plan: [x] eager for discharge [] agreeable with discharge plan [] ambivalent about discharge [] disagrees with discharge today
[2018-03-08 08:41] VITALS: BP 132/77
[2018-03-08] MEDS: Vitamin THERAPEUTIC TAB PO SCH (08:41)
== END 2018-03-08 11:10 | disposition home or self-care (01) | DRG 750 ==
LOC: ED 00:58 → BSU 04:54
PROVIDERS: ADMIT Psychiatry & Neurology Psychiatry; ATTEND Psychiatry & Neurology Psychiatry
DX: F20.9 Schizophrenia, unspecified (principal); E89.0 Postprocedural hypothyroidism; F41.9 Anxiety disorder, unspecified; L84 Corns and callosities; J45.909 Unspecified asthma, uncomplicated; Z79.1 Long term (current) use of non-steroidal anti-inflammatories (NSAID); Z79.899 Other long term (current) drug therapy; Z85.850 Personal history of malignant neoplasm of thyroid; Z86.14 Personal history of Methicillin resistant Staphylococcus aureus infection; Z83.49 Family history of other endocrine, nutritional and metabolic diseases; Z82.49 Family history of ischemic heart disease and other diseases of the circulatory system
CPT/HCPCS: 36415; 80048; 80053; 80061; 80320; 80329; 83036; 84436; 84443; 84479; 85025; 99222; 99231; 99232; 99238; 99284; A9270-GY; G0480

== ENCOUNTER 2018-08-24 14:52 | Emergency (ER) | payer OTHER ==
[2018-08-24 15:17] VITALS: BP 107/66
--- NOTE | 2018-08-24 16:07 | UC ---
Skin Complaint HPI - HPI Summary HPI Summary: This patient is a 28-year-old male who presents to the urgent care with a chief complaint of having some bleeding in the left lateral aspect of the left foot. He complains the he has been having the seizures for the last 5-6 months. He reports that 6 months ago he was walking with his sandals and he had contact and since then he is be having the swelling and intermittent bleeding. He doesn 't have any fevers, the pain is only 2-3 out of 10. Today he noticed that he was bleeding and he applied pressure and the symptoms resolved. However he wasn 't walking about 2 miles and he started bleeding again. Therefore he decided to come to the urgent care for further workup and management. He has no other complaints. - History of Current Complaint Chief Complaint: UCSkin Time Seen by Provider: 08/24/18 15:26 Stated Complaint: LEFT FOOT SKIN ISSUIE Hx Obtained From: Patient Onset/Duration: Other - Onset a was 6 months ago. Timing: Intermittent Episodes Lasting: Onset Severity: Mild Current Severity: None Pain Intensity: 0 - Allergy/Home Medications Allergies/Adverse Reactions: Allergies Allergy/AdvReac Type Severity Reaction Status Date / Time No Known Allergies Allergy Verified 08/24/18 15:17 Home Medications: Home Medications Levothyroxine TAB* [Synthroid 100 MCG TAB*] 175 mcg PO DAILY@0600 08/24/18 [ History Confirmed 08/24/18] PMH/Surg Hx/FS Hx/Imm Hx Previously Healthy: Yes Endocrine History: Hypothyroidism - Surgical History Surgical History: Yes Surgery Procedure, Year, and Place: TONSILLECTOMY., tubes ears as a child, THYROIDECTOMY - Family History Known Family History: Positive: Unknown, Other - Depression: Mother - Social History Alcohol Use: None Alcohol Amount: Pt is not known to be a drinker Substance Use Type: None Substance Use Comment - Amount & Last Used: Pt again stated "all the time...forever" Smoking Status (MU): Former Smoker Type: Cigarettes Amount Used/How Often: several cigarettes a day Length of Time of Smoking/Using Tobacco: 1 year Have You Smoked in the Last Year: No - Immunization History Most Recent Influenza Vaccination: unknown Most Recent Tetanus Shot: within 10 yrs Most Recent Pneumonia Vaccination: never Review of Systems All Other Systems Reviewed And Are Negative: Yes Constitutional: Positive: Negative Skin: Positive: Other - Left side of the foot or bleeding. Eyes: Positive: Negative ENT: Positive: Negative Respiratory: Positive: Negative, Shortness Of Breath Gastrointestinal: Positive: Negative Genitourinary: Positive: Negative Motor: Positive: Negative Neurovascular: Positive: Negative Musculoskeletal: Positive: Negative Neurological: Positive: Negative Psychological: Positive: Negative Is Patient Immunocompromised?: No Physical Exam - Summary Physical Exam Summary: VITAL SIGNS: Reviewed. GENERAL: Patient is a well developed and nourished male who is lying comfortable in the stretcher. Patient is not in any acute respiratory distress. HEAD AND FACE: No signs of trauma. No ecchymosis, hematomas or skull depressions. No sinus tenderness. EYES: PERRLA, EOMI x 2, No injected conjunctiva, no nystagmus. EARS: Hearing grossly intact. Ear canals and tympanic membranes are within normal limits. MOUTH: Oropharynx within normal limits. NECK: Supple, trachea is midline, no adenopathy, no JVD, no carotid bruit, no c- spine tenderness, neck with full ROM. CHEST: Symmetric, no tenderness at palpation LUNGS: Clear to auscultation bilaterally. No wheezing or crackles. CVS: Regular rate and rhythm, S1 and S2 present, no murmurs or gallops appreciated. ABDOMEN: Soft, non-tender. No signs of distention. No rebound no guarding, and no masses palpated. Bowel sounds are normal. EXTREMITIES: FROM in all major joints, no edema, no cyanosis or clubbing. NEURO: Alert and oriented x 3. No acute neurological deficits. Speech is normal and follows commands. SKIN: Dry and warm, very small wound in the left lateral aspect of the left foot. Bleeding has been controlled. No acute findings. Vital Signs: Initial Vital Signs Temp 98.6 F 08/24/18 15:13 Pulse 65 08/24/18 15:13 Resp 16 08/24/18 15:13 BP 107/66 08/24/18 15:13 Pulse Ox 99 08/24/18 15:13 Course/Dx - Course Course Of Treatment: X-ray of the left foot shows no fracture dislocation or foreign bodies. healing fracture of the third metatarsal. The bleeding has stopped and is controlled. However the patient has intermittent episodes of these problems therefore he was recommended to follow- up with podiatry. The patient understands and agrees. He is hemodynamically stable alert oriented 3. - Diagnoses Provider Diagnosis: Skin abrasion Discharge - Sign-Out/Discharge Documenting (check all that apply): Patient Departure All imaging exams completed and their final reports reviewed: Yes - Discharge Plan Condition: Improved Disposition: HOME Patient Education Materials: Chronic Wound Care (ED) Referrals: Zofia Juan MD [Primary Care Provider] - Additional Instructions: Patient will be discharged home with follow-up with the PCP and also recommended to follow-up with podiatry. - Billing Disposition and Condition Condition: IMPROVED Disposition: Home
== END 2018-08-24 16:19 | disposition home or self-care (01) ==
LOC: UCEAST 14:52
DX: S90.812A Abrasion, left foot, initial encounter (principal); X58.XXXA Exposure to other specified factors, initial encounter; Y92.9 Unspecified place or not applicable; E03.9 Hypothyroidism, unspecified; Z87.891 Personal history of nicotine dependence
CPT/HCPCS: 99212; G0463

== ENCOUNTER → 2018-11-26 11:48 | Day surgery (SDC) | payer OTHER ==
[~2018-11-26 11:48] MED LIST: Buffered Lidocaine 1% SYRIN* 1 ML/SYRINGE INTRADERM ONE; Lactated Ringers 1000 ML Bag* 1,000 ML IV SCH; ceFAZolin 2 GM PREMIX in ORs 2 GM/50 ML BAG ONE
[2018-11-26 13:10] VITALS: BP 129/76
== END | disposition home or self-care (01) ==
LOC: OR 11:48
PROVIDERS: ATTEND Podiatrist
DX: M71.372 Other bursal cyst, left ankle and foot (principal); Z53.8 Procedure and treatment not carried out for other reasons
CPT/HCPCS: J0690

== ENCOUNTER 2019-11-10 11:44 | Inpatient (IN) ==
[2019-11-10] MEDS ORDERED: LORazepam 2 mg VIAL 1 ml IM ONE (13:31)
[2019-11-10] MEDS ORDERED: Lorazepam PYXIS KEY PRN (13:31)
[2019-11-10] MEDS ORDERED: Haloperidol 5 mg/ml SDV IV/IM 5 MG/ML AMP IM ONE (13:31)
[2019-11-10 15:20] LABS: ABS Basophils 0.1 10^3/ul (0-0.2); ABS Eosinophils 0.2 10^3/ul (0-0.6); ABS Lymphocytes 1.8 10^3/ul (1.0-4.8); ABS Monocytes 0.3 10^3/ul (0-0.8); ABS Neutrophils 5.2 10^3/ul (1.5-7.7); Hematocrit 40 % (42-52); Hemoglobin 14.1 g/dL (14.0-18.0); Mean Corpuscular HGB Conc 35 g/dL (31-36); Mean Corpuscular Hemoglobin 33 pg (27-31); Mean Corpuscular Volume 93 fL (80-94); Mean Platelet Volume 9.5 fL (7.4-10.4); Nucleated Red Blood Cells % 0.1; Platelet Count 182 10^3/uL (150-450); Red Blood Count 4.33 10^6 /uL (4.18-5.48); Red Cell Distribution Width 15 % (10-15); White Blood Count 7.6 10^3/uL (3.5-10.8)
[2019-11-10 15:44] LABS: ALT 53 U/L (7-52); AST 174 U/L (13-39); Albumin 4.8 g/dL (3.2-5.2); Albumin/Globulin Ratio 1.9 (1-3); Alkaline Phosphatase 49 U/L (34-104); Anion Gap 9 mmol/L (2-11); BUN/Creatinine Ratio 9.8 (8-20); Blood Urea Nitrogen 15 mg/dL (6-24); CO2 Carbon Dioxide 27 mmol/L (22-32); Calcium 8.8 mg/dL (8.6-10.3); Chloride 104 mmol/L (101-111); EGFR African American 65.4 (>60); EGFR Non-African American 54.1 (>60); Globulin 2.5 g/dL (2-4); Glucose 86 mg/dL (70-100); Potassium 3.9 mmol/L (3.5-5.0); Sodium 140 mmol/L (135-145); Total Protein 7.3 g/dL (6.4-8.9)
[2019-11-10 15:45] LABS: Acetaminophen < 15 mcg/mL; Alcohol, S < 10 mg/dL (<10); Salicylate < 2.50 mg/dL (<30)
[2019-11-10 15:47] LABS: Free T4 < 0.25 ng/dL (0.61-1.12)
[2019-11-10 17:54] LABS: TSH Ultra Thyroid Stim Horm 332.69 mcIU/mL (0.34-5.60)
[2019-11-10] MEDS ORDERED: Nicotine GUM 2MG FRUIT FLAVOR PO PRN (23:00)
[2019-11-10] MEDS ORDERED: Al Hydrox/Mg Hydrox/Simet LIQ 30 ML UDC PO PRN (23:57)
[2019-11-12] MEDS: Vitamin THERAPEUTIC TAB PO SCH ×2 (01:49→08:44)
[2019-11-13] MEDS: Vitamin THERAPEUTIC TAB PO SCH (09:02)
[2019-11-14] MEDS: Vitamin THERAPEUTIC TAB PO SCH (08:12)
[2019-11-14 08:38] LABS: Albumin 4.9 g/dL (3.2-5.2); Albumin/Globulin Ratio 1.9 (1-3); BUN/Creatinine Ratio 13.4 (8-20); Calcium 9.8 mg/dL (8.6-10.3); EGFR African American 63.5 (>60); EGFR Non-African American 52.5 (>60); Globulin 2.6 g/dL (2-4); Potassium 3.8 mmol/L (3.5-5.0); Total Bilirubin 0.6 mg/dL (0.2-1.0); Total Protein 7.5 g/dL (6.4-8.9)
[2019-11-14 08:41] LABS: HDL Cholesterol 58.5 mg/dL
[2019-11-14] MEDS ORDERED: Paliperidone SUSTENNA 234 MG/1.5 ML IM ONE (10:00)
[2019-11-14 16:16] LABS: TSH Ultra Thyroid Stim Horm 251.99 mcIU/mL (0.34-5.60)
[2019-11-15] MEDS: Vitamin THERAPEUTIC TAB PO SCH (09:35)
[2019-11-16] MEDS: Vitamin THERAPEUTIC TAB PO SCH (09:03)
[2019-11-17] MEDS: Vitamin THERAPEUTIC TAB PO SCH (08:40)
[2019-11-17 10:25] VITALS: BP 118/73
[2019-11-17] MEDS ORDERED: Paliperidone SUSTENNA 156 MG/1 ML IM ONE (12:00)
== END 2019-11-17 13:40 | disposition home or self-care (01) | DRG 750 ==
LOC: ED 11:44 → BSU 23:34
PROVIDERS: ADMIT Psychiatry & Neurology Psychiatry; ATTEND Psychiatry & Neurology Psychiatry

== ENCOUNTER 2021-04-09 18:27 | Inpatient (IN) ==
[2021-04-09 19:11] LABS: ABS Basophils 0.1 10^3/ul (0-0.2); ABS Eosinophils 0.3 10^3/ul (0-0.6); ABS Lymphocytes 2.7 10^3/ul (1.0-4.8); ABS Monocytes 0.6 10^3/ul (0-0.8); ABS Neutrophils 6.1 10^3/ul (1.5-7.7); Eosinophil % 3.5 %; Hematocrit 45 % (42-52); Hemoglobin 15.3 g/dL (14.0-18.0); Lymphocyte % 27.4 %; Mean Corpuscular HGB Conc 34 g/dL (31-36); Mean Corpuscular Hemoglobin 31 pg (27-31); Mean Corpuscular Volume 90 fL (80-94); Mean Platelet Volume 8.4 fL (7.4-10.4); Nucleated Red Blood Cells % 0.1; Platelet Count 236 10^3/uL (150-450); Red Blood Count 4.98 10^6 /uL (4.18-5.48); Red Cell Distribution Width 16 % (10-15); White Blood Count 9.8 10^3/uL (3.5-10.8)
[2021-04-09 20:04] LABS: ALT 33 U/L (7-52); Acetaminophen < 15 mcg/mL; Albumin 5.1 g/dL (3.2-5.2); Albumin/Globulin Ratio 2.2 (1-3); Alcohol, S < 13 mg/dL (<13); Alkaline Phosphatase 59 U/L (35-149); Blood Urea Nitrogen 25 mg/dL (6-24); CO2 Carbon Dioxide 31 mmol/L (22-32); Calcium 9.8 mg/dL (8.6-10.3); Chloride 100 mmol/L (101-111); Globulin 2.3 g/dL (2-4); Glucose 79 mg/dL (70-100); Salicylate < 2.50 mg/dL (<30); Sodium 138 mmol/L (135-145); Total Protein 7.4 g/dL (6.4-8.9); eGFR CKD-EPI 56.5 (>60)
[2021-04-09 20:17] LABS: AST 77 U/L (13-39); Anion Gap 7 mmol/L (2-11); Potassium 4.4 mmol/L (3.5-5.0)
[2021-04-09 20:19] LABS: Creatine Kinase 2659 U/L (10-223)
[2021-04-09] MEDS ORDERED: Lactated Ringers 1000 ml BAG 1,000 ML IV ONE ×2 (21:07)
[2021-04-09 21:21] LABS: TSH Ultra Thyroid Stim Horm 318.62 mcIU/mL (0.34-5.60)
[2021-04-09 22:09] LABS: Urine Appearance Cloudy; Urine Bilirubin Negative (Negative); Urine Blood Negative (Negative); Urine Color Yellow; Urine Glucose Negative (Negative); Urine Ketones Negative (Negative); Urine Nitrite Negative (Negative); Urine Protein Negative (Negative); Urine Specific Gravity 1.027 (1.002-1.030); Urine Urobilinogen Negative (Negative)
[2021-04-09 22:17] LABS: Urine Benzodiazepine Screen None Detected (None Detect); Urine Cannabinoids Screen None Detected (None Detect); Urine Opiates Screen None Detected (None Detect)
[2021-04-10 00:49] LABS: Anion Gap 7 mmol/L (2-11); Blood Urea Nitrogen 22 mg/dL (6-24); CO2 Carbon Dioxide 29 mmol/L (22-32); Calcium 9.1 mg/dL (8.6-10.3); Chloride 101 mmol/L (101-111); Glucose 85 mg/dL (70-100); Potassium 3.9 mmol/L (3.5-5.0); Sodium 137 mmol/L (135-145); eGFR CKD-EPI 67.6 (>60)
[2021-04-10 01:15] LABS: Creatine Kinase 2271 U/L (10-223)
[2021-04-10] MEDS: NS 0.9% 1000 ml BAG 1,000 ML IV SCH (05:18)
[2021-04-10 08:25] LABS: Free T4 < 0.25 ng/dL (0.61-1.12)
[2021-04-10] MEDS ORDERED: NS 0.9% 1000 ml BAG 1,000 ML IV ONE (08:31)
[2021-04-10] MEDS ORDERED: Al Hydrox/Mg Hydrox/Simet LIQ 30 ML UDC PO PRN (08:39)
[2021-04-10] MEDS ORDERED: Nicotine GUM 2MG FRUIT FLAVOR PO PRN (08:39)
[2021-04-15 08:32] VITALS: BP 116/69
[2021-04-15 09:06] LABS: Calcium 9.5 mg/dL (8.6-10.3); Potassium 4.1 mmol/L (3.5-5.0)
[2021-04-15 09:12] LABS: HDL Cholesterol 61.3 mg/dL; eGFR CKD-EPI 59.1 (>60)
[2021-04-16 17:10] LABS: Thyroglobulin Antibody <1.8 IU/mL (<1.8); Thyroglobulin Tumor Marker <0.1 ng/mL
== END 2021-04-15 13:21 | disposition home or self-care (01) | DRG 750 ==
LOC: ED 18:27 → EDHOLD 04-10 10:51 → BSU 04-10 12:16
PROVIDERS: ADMIT Psychiatry & Neurology Psychiatry; ATTEND Psychiatry & Neurology Psychiatry

== ENCOUNTER 2022-07-15 18:58 | Inpatient (IN) ==
[2022-07-15 21:28] LABS: ABS Basophils 0.1 10^3/uL (0.0-0.1); ABS Eosinophils 0.2 10^3/uL (0.0-0.5); ABS Monocytes 0.4 10^3/uL (0.0-1.1); ABS Neutrophils 5.2 10^3/uL (1.5-7.6); Hematocrit 42.2 % (38-53); Hemoglobin 14.4 g/dL (13.2-16.3); Lymphocyte % 24.9 %; Mean Corpuscular Hemoglobin 30.9 pg (27-33); Mean Corpuscular Hgb Conc 34.2 g/dL (31-36); Mean Corpuscular Volume 90.4 fL (80-97); Mean Platelet Volume 9.1 fL (7.5-11.2); Nucleated Red Blood Cells % 0.1 /100 WBC (0.0-0.4); Platelet Count 184 10^3/uL (150-450); Red Blood Count 4.67 10^6/uL (4.06-5.63); Red Cell Distribution Width 15.4 % (12-17); White Blood Count 7.9 10^3/uL (3.6-10.2)
[2022-07-15 21:47] LABS: ALT 46 U/L (7-52); AST 129 U/L (13-39); Albumin 5.1 g/dL (3.2-5.2); Albumin/Globulin Ratio 1.8 (1-3); Alkaline Phosphatase 75 U/L (35-149); Anion Gap 7 mmol/L (2-16); Blood Urea Nitrogen 19 mg/dL (6-24); CO2 Carbon Dioxide 31 mmol/L (22-32); Calcium 9.4 mg/dL (8.6-10.3); Chloride 103 mmol/L (101-111); Creatinine, Serum 1.88 mg/dL (0.67-1.17); Globulin 2.8 g/dL (2-4); Glucose 82 mg/dL (70-100); Potassium 4.2 mmol/L (3.5-5.0); Sodium 141 mmol/L (135-145); Total Protein 7.9 g/dL (6.4-8.9); eGFR CKD-EPI 48.1 (>60)
[2022-07-15 22:00] LABS: Acetaminophen < 15 mcg/mL; Alcohol, S < 13 mg/dL (<13); Salicylate < 2.50 mg/dL (<30)
[2022-07-15 23:04] LABS: TSH Ultra Thyroid Stim Horm 352.65 mcIU/mL (0.34-5.60)
[2022-07-15 23:43] LABS: Free T4 < 0.25 ng/dL (0.61-1.12)
[2022-07-16] MEDS ORDERED: Al Hydrox/Mg Hydrox/Simet LIQ 30 ML UDC PO PRN (07:49)
[2022-07-16] MEDS: Vitamin THERAPEUTIC TAB PO SCH (08:48)
[2022-07-16 09:15] LABS: Creatine Kinase 4826 U/L (10-223)
[2022-07-17 08:17] LABS: Calcium 9.2 mg/dL (8.6-10.3); Creatinine, Serum 1.57 mg/dL (0.67-1.17); HDL Cholesterol 60.3 mg/dL; eGFR CKD-EPI 59.7 (>60)
[2022-07-17] MEDS: Vitamin THERAPEUTIC TAB PO SCH (10:06)
[2022-07-18] MEDS: Vitamin THERAPEUTIC TAB PO SCH (07:55)
[2022-07-18 14:39] LABS: Urine Appearance Cloudy; Urine Bilirubin Negative (Negative); Urine Blood Negative (Negative); Urine Color Yellow; Urine Glucose Negative (Negative); Urine Ketones Negative (Negative); Urine Nitrite Negative (Negative); Urine Protein Negative (Negative); Urine Specific Gravity 1.019 (1.002-1.030); Urine Urobilinogen Negative (Negative)
[2022-07-18 15:53] LABS: Urine Benzodiazepine Screen None Detected (None Detect); Urine Cannabinoids Screen None Detected (None Detect); Urine Opiates Screen None Detected (None Detect)
[2022-07-19] MEDS: Vitamin THERAPEUTIC TAB PO SCH (08:31)
[2022-07-19 09:34] LABS: Calcium 9.5 mg/dL (8.6-10.3); Creatinine, Serum 1.7 mg/dL (0.67-1.17); Potassium 3.8 mmol/L (3.5-5.0); eGFR CKD-EPI 54.3 (>60)
[2022-07-20] MEDS: Vitamin THERAPEUTIC TAB PO SCH (07:20)
[2022-07-21 08:52] LABS: Calcium 9.1 mg/dL (8.6-10.3); Creatinine, Serum 1.56 mg/dL (0.67-1.17); Potassium 3.8 mmol/L (3.5-5.0); eGFR CKD-EPI 60.1 (>60)
[2022-07-21] MEDS: Vitamin THERAPEUTIC TAB PO SCH (10:29)
[2022-07-22] MEDS: Vitamin THERAPEUTIC TAB PO SCH (07:46)
[2022-07-22 08:21] VITALS: BP 108/84
== END 2022-07-22 12:00 | disposition home or self-care (01) | DRG 750 ==
LOC: ED 18:58 → EDHOLD 07-16 07:49 → BSU 07-16 07:49 → EDHOLD 07-16 09:09 → BSU 07-16 09:47
PROVIDERS: ADMIT Psychiatry & Neurology Psychiatry; ATTEND Psychiatry & Neurology Psychiatry